=== PATIENT | male | born 1955 | race Caucasian/White ===

== ENCOUNTER 2019-11-13 09:05 | Outpatient (CLI) | payer BC ==
--- NOTE | 2019-11-13 11:21 | CT ---
CT ABDOMEN AND PELVIS WITHOUT AND WITH CONTRAST: Date: 11/13/2019 COMPARISON: None. HISTORY: Prostate cancer with microhematuria. TECHNIQUE: Multiple contiguous axial images were obtained in a CT of the abdomen and pelvis without and with IV contrast. Postcontrast images are obtained in the nephrographic and excretory phases. Sagittal and co sanam reformats were performed. FINDINGS: The prostate is enlarged. No obvious prostate abnormality is seen. No soft tissue mass is seen extend ing from the prostate into the periprostatic tissues. No pelvic adenopathy is seen. The kidneys are normal without calcifications or hydronephrosis. No mass is seen in either kidney. David th ureters and the urinary bladder are unremarkable. The liver, gallbladder, adrenal glands, and pancreas are unremarkable. The spleen is enlarged measuri ng 19.2 cm in length. There are scattered diverticula in the colon. The small bowel and appendix are unremarkable. No retroperitoneal adenopathy is seen. Atherosclerotic calcifications are seen in the aorta. Degenerative changes are seen in the spine. Visualized inferior thorax is unremarkable. IMPRESSION: 1. No significant renal or urinary collecting system abnormality. 2. Splenomegaly. POS: EAA
== END 2019-11-13 09:06 | disposition home or self-care (01) ==
LOC: BICCT 09:05
PROVIDERS: ATTEND Urology
DX: C61 Malignant neoplasm of prostate (principal); R31.29 Other microscopic hematuria; R16.1 Splenomegaly, not elsewhere classified
CPT/HCPCS: 74178; 82565

== ENCOUNTER 2021-12-13 10:45 | Outpatient (CLI) | payer MEDICARE, OTHER | END 2021-12-13 10:46 | disposition home or self-care (01) | LOC: BICRAD 10:45 | PROVIDERS: ATTEND Internal Medicine Rheumatology | DX: M25.561 Pain in right knee (principal); M25.562 Pain in left knee ==